=== PATIENT | male | born 1995 | race Caucasian/White ===

== ENCOUNTER 2019-06-01 18:35 | Emergency (ER) | payer BC ==
[~2019-06-01] VITALS: Ht 182.9 cm; Wt 68.2 kg
[2019-06-01 18:38] VITALS: BP 132/74; TEMP 98.3
[2019-06-01] MEDS ORDERED: SINGULAIR 110 MG/TAB (18:51)
[2019-06-01] MEDS ORDERED: CIPRO 500MG TA500 MG PO (18:59)
[2019-06-01 19:50] VITALS: PULSE 79
== END 2019-06-01 19:50 | disposition home or self-care (01) ==
LOC: COL.ER 18:35
DX: S61.213A Laceration without foreign body of left middle finger without damage to nail, initial encounter (principal); S61.012A Laceration without foreign body of left thumb without damage to nail, initial encounter; W26.0XXA Contact with knife, initial encounter; Y93.G3 Activity, cooking and baking; Y92.009 Unspecified place in unspecified non-institutional (private) residence as the place of occurrence of the external cause

== ENCOUNTER → 2019-06-11 | Outpatient (CLI) | payer BC ==
[~2019-06-11] MED LIST: CIPRO 500MG TA500 MG PO; SINGULAIR 110 MG/TAB
[2019-06-11 10:40] VITALS: BP 100/65; PULSE 84; TEMP 97.9
== END ==
LOC: COL.ER 10:38
DX: Z48.02 Encounter for removal of sutures (principal)

== ENCOUNTER 2019-08-22 20:12 | Emergency (ER) | payer BC ==
[~2019-08-22] VITALS: Ht 182.9 cm; Wt 68.2 kg
[2019-08-22 20:42] VITALS: TEMP 98.4
[2019-08-22 22:31] VITALS: BP 110/70; PULSE 69
== END 2019-08-22 22:31 | disposition home or self-care (01) ==
LOC: COL.ER 20:12
DX: R06.02 Shortness of breath (principal); Z88.0 Allergy status to penicillin
CPT/HCPCS: J8540